=== PATIENT | male | born 1985 | race Caucasian/White ===

== ENCOUNTER 2017-09-18 18:50 | Emergency (ER) | payer BC ==
[~2017-09-18] VITALS: Ht 177.8 cm; Wt 58.1 kg
--- NOTE | 2017-09-18 19:15 | NUR ---
PT PRESENTING TO ED WITH COMPLAINT OF BLOODY DIARRHEA--ROUGHLY 7-10 STOOLS/DAY. ACCORDING TO PT HE HAS BEEN EXPERIENCING THIS CONDITION INTERMITTENTLY FOR 3 MONTHS. PT STATES FAMILY HX OF COLON CA.
--- NOTE | 2017-09-18 19:41 | NUR ---
MD JACKSON AT BEDSIDE CONDUCTING MED EVAL
[2017-09-18 20:02] LABS: BASOPHILS # (AUTO) 0.1 K/uL (0.0-8.0); EOSINOPHILS % (AUTO) 9.1 % (0.0-7.0); HEMATOCRIT 41.6 % (36.7-47.1); HEMOGLOBIN 14.5 g/dL (12.5-16.3); LYMPHOCYTES # (AUTO) 2.2 K/uL (20.0-40.0); LYMPHOCYTES % (AUTO) 20.6 % (20.5-51.5); MEAN CORPUSCULAR HEMOGLOBIN 31.4 uug (23.8-33.4); MEAN CORPUSCULAR HGB CONC 35 g/dL (32.5-36.3); MEAN CORPUSCULAR VOLUME 90.1 fL (73.0-96.2); MONOCYTES # (AUTO) 1.5 K/uL (2.0-10.0); MONOCYTES % (AUTO) 13.7 % (0.0-11.0); NEUTROPHILS # (AUTO) 6.1 K/uL (1.8-8.9); NEUTROPHILS % (AUTO) 55.6 % (38.5-71.5); PLATELET COUNT (AUTO) 371 K/uL (152-348); RED BLOOD CELL COUNT(AUTO) 4.62 MIL/uL (4.06-5.63); WHITE BLOOD COUNT (AUTO) 10.9 K/uL (3.6-10.2)
[2017-09-18 20:11] LABS: CREATININE 1.1 mg/dL (0.6-1.3); POTASSIUM 4.3 mmol/L (3.5-5.1)
[2017-09-18 20:16] LABS: BILIRUBIN,DIRECT 0.1 mg/dL (0.0-0.2); BILIRUBIN,TOTAL 0.5 mg/dL (0.2-1.0); TOTAL PROTEIN, SERUM 6.9 g/dL (6.4-8.2)
--- NOTE | 2017-09-18 20:30 | NUR ---
Patient discharged to home in stable conditon. Written and verbal after care instructions given. Patient verbalizes understanding of instructions. Patient able to ambulate unassisted with a steady gait. Patient left with all personal belongings.
[2017-09-18 20:38] VITALS: BP 125/72
== END 2017-09-18 20:30 | disposition home or self-care (01) ==
LOC: ER 18:54
DX: K92.1 Melena (principal); R42 Dizziness and giddiness
CPT/HCPCS: 36415; 70030-TC; 83690; 85025; 85730; A4663